=== PATIENT | male | born 1965 | race Caucasian/White ===

== ENCOUNTER 2017-03-09 09:10 | Day surgery (SDC) | payer OTHER ==
[~2017-03-09 09:10] MED LIST: RINGER'S SOLUTION,LACTATED 1,000 ML IV PRN
[2017-03-09] MEDS ORDERED: RINGER'S SOLUTION,LACTATED 1,000 ML IV ONE ×2 (09:40→12:10)
[2017-03-09 14:02] VITALS: BP 148/93
--- NOTE | 2017-03-09 14:06 | OR ---
Operative Report - Dictated Report Narrative: Date: 03/09/2017 Preop diagnosis: Positive cologuard screening test Postop diagnosis: Pedunculated polyp at 35 cm, sessile polyp at 30 cm. Procedure: Total colonoscopy Snare polypectomy at 35 cm Cold forcep biopsy at 30 cm Electrocautery destruction of polyp at 30 cm Staff surgeon: Giuseppe Matos MD Anesthesia: MAC per [employer] REPAIR EBL: Minimal Specimens: Polyp 35 cm, Polyp 30 cm Description: After informed consent and appropriate sedation the patient was placed in the left lateral decubitus position. A flexible fiberoptic video colonoscope was introduced and advanced under direct vision without difficulty to the cecum. The usual landmarks were identified. Preparation was excellent and excellent views were obtained. The findings were of a normal cecum, ascending colon, hepatic flexure, transverse colon, splenic flexure, descending colon. A pedunculated polyp was encountered at 35 cm and a snare polypectomy was performed. The snare was able to be positions flush with the surface at the bottom of the stock. It was excised with electrocautery and then grasped with a three-prong grasper and removed. This specimen was submitted for anatomic pathology. The scope was then re-introduced to the previous biopsy site which appeared hemostatic. A sessile polyp was identified at 30 cm. It was biopsied with cold forceps and submitted for anatomic pathology. The remainder of the polyp was grasped with forceps and destroyed with electrocautery. The rectum appeared normal. Retroflex was normal. There is an external hemorrhoid of the right posterior column.
== END 2017-03-09 09:11 | disposition home or self-care (01) ==
LOC: AMB 09:10
PROVIDERS: ATTEND Specialist
PROC: 0DBE8ZX Excision of Large Intestine, Via Natural or Artificial Opening Endoscopic, Diagnostic (ICD-10-PCS; 2017-03-09)
PROC: 0DBE8ZX Excision of Large Intestine, Via Natural or Artificial Opening Endoscopic, Diagnostic (ICD-10-PCS; principal; 2017-03-09 10:15)
DX: Z12.11 Encounter for screening for malignant neoplasm of colon (principal); D37.4 Neoplasm of uncertain behavior of colon; K63.5 Polyp of colon; E78.00 Pure hypercholesterolemia, unspecified; G47.33 Obstructive sleep apnea (adult) (pediatric); F17.200 Nicotine dependence, unspecified, uncomplicated; Z68.29 Body mass index [BMI] 29.0-29.9, adult